=== PATIENT | male | born 1995 | race Caucasian/White ===

== ENCOUNTER 2020-12-18 22:23 | Emergency (ER) | payer OTHER ==
[2020-12-18 22:40] VITALS: BP 145/71; PULSE 93
--- NOTE | 2020-12-18 23:03 | EDM.PDOC ---
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 Headache Pain Score (Numeric/FACES): 6 - Related Data Allergies Allergy/AdvReac Type Severity Reaction Status Date / Time amoxicillin trihydrate Allergy Rash Verified 12/18/20 22:39 [From Augmentin] potassium clavulanate Allergy Rash Verified 12/18/20 22:39 [From Augmentin] shellfish derived Allergy Bronchospas Verified 12/18/20 22:39 ms Home Meds: Home Meds NK [No Known Home Meds] 03/24/16 [History] Past Medical History HEENT History: Reports: Allergic Rhinitis Gastrointestinal History: Reports: Cholelithiasis, Gastritis, Helicobacter Pylori Other Gastrointestinal History: bloody emesis Musculoskeletal History: Reports: Fracture Neurological History: Reports: Concussion - Infectious Disease History Infectious Disease History: Reports: Chicken Pox - Past Surgical History GI Surgical History: Reports: Cholecystectomy Social & Family History - Tobacco Use Tobacco Use Status *Q: Never Tobacco User - Caffeine Use Caffeine Use: Reports: None - Recreational Drug Use Recreational Drug Use: No ED ROS GENERAL - Review of Systems Review Of Systems: See Below Constitutional: Reports: Fever HEENT: Reports: No Symptoms Respiratory: Reports: No Symptoms Cardiovascular: Reports: No Symptoms GI/Abdominal: Reports: No Symptoms ED EXAM, GENERAL - Physical Exam Exam: See Below Exam Limited By: No Limitations General Appearance: Alert, WD/WN, No Apparent Distress Respiratory/Chest: No Respiratory Distress, Lungs Clear, Normal Breath Sounds, No Accessory Muscle Use, Chest Non-Tender Cardiovascular: Regular Rate, Rhythm, No Murmur GI/Abdominal: Soft, Non-Tender Course - Vital Signs Last Recorded V/S: Last Vital Signs Temp 97.8 F 12/18/20 22:47 Pulse 93 12/18/20 22:47 Resp 16 12/18/20 22:47 BP 145/71 H 12/18/20 22:47 Pulse Ox 95 12/18/20 22:47 - Orders/Labs/Meds Labs: Laboratory Tests 12/18/20 Range/Units 22:49 SARS CoV-2 RNA Rapid SHONDA Positive H Departure - Departure Time of Disposition: 23:02 Disposition: Home, Self-Care 01 Condition: Fair Clinical Impression: COVID-19 - Discharge Information Instructions: 10 Things You Can Do to Manage Your COVID-19 Symptoms at Home - [facility] (10/12/2020) Referrals: Carrie Monreal PA [Primary Care Provider] - Additional Instructions: Symptomatic care and quarantine at this time, please followup with your primary care provider in 10-14 days if not better, please call return to the emergency department with worsening of symptoms. Sepsis Event Note (ED) - Evaluation Sepsis Screening Result: No Definite Risk - Focused Exam Vital Signs: Vital Signs Temp Pulse Resp BP Pulse Ox 12/18/20 22:47 97.8 F 93 16 145/71 H 95 12/18/20 22:37 97.8 F 93 16 145/71 H 95 - Assessment/Plan Plan: Assessment Acuity = acute Site and laterality = viral syndrome Etiology = COVID-19 Manifestations = fever Location of injury = Home Lab values = COVID-19 positive Plan Quarantine and symptomatic care This note was dictated using [employer] voice recognition software please call with any questions on syntax or grammar.
== END 2020-12-18 23:08 | disposition home or self-care (01) ==
LOC: JP.ED 22:23
DX: U07.1 COVID-19 (principal); Z88.0 Allergy status to penicillin; Z91.013 Allergy to seafood
CPT/HCPCS: 99284; U0002